=== PATIENT | female | born 1995 | race Caucasian/White ===

== ENCOUNTER 2021-01-05 14:16 | Day surgery (SDC) | payer OTHER, SELFPAY ==
--- NOTE | ~2021-01-05 | US_ITS ---
EXAMINATION: US pelvic complete DATE: 01/05/2021 15:10 INDICATION: Pelvic pain. Miscarriage. TECHNIQUE: Real-time transabdominal pelvic ultrasound was performed. COMPARISON: None. FINDINGS: The uterus measures 12.8 x 7.1 x 6.5 cm. There is no visible intrauterine gestational sac. The endome trial complex measures 13 mm in thickness. No internal vascularity. The right ovary is not visualized . The left ovary measures 2.7 x 1.7 x 1.5 cm. There is no free fluid in the pelvis. IMPRESSION: 1. Mildly thickened endometrial complex suspicious for retained products of conception. Reviewed, dictated and finalized at location A. IMPRESSION: 1. Mildly thickened endometrial complex suspicious for retained products of co nception.
[2021-01-05 14:30] VITALS: BP 111/69; PULSE 79; RESP 19; TEMP 36.8; O2SAT 100
[2021-01-05] MEDS: MORPHINE SULFATE (*CRX) 4 MG/ML INJ IV PUSH ×2 (14:38→15:58)
[2021-01-05] MEDS: LACTATED RINGERS 1,000 ML 999 ML IV CONT (14:39)
[2021-01-05 14:50] LABS: Basophils Absolute Auto 0.1 K/mm3 (0.0-0.1); Basophils Percent Auto 0.3 % (0.2-1.2); Eosinophils Absolute Auto 0.2 K/mm3 (0-0.3); Eosinophils Percent Auto 1.2 % (0-4.4); Hematocrit 33.6 % (37.0-47.0); Hemoglobin 11.3 g/dL (12.0-15.0); Immature Granulocyte Absolute 0.08 K/mm3 (0.00-0.031); Immature Granulocyte Percent A 0.5 % (0-0.5); Lymphocytes Absolute Auto 2.79 K/mm3 (0.9-3.2); Lymphocytes Percent Auto 18.8 % (18.3-44.2); Mean Corpuscular HGB Conc 33.6 g/dl (32-36); Mean Corpuscular Hemoglobin 30.3 pg (26-34); Mean Corpuscular Volume 90.1 fl (80-100); Mean Platelet Volume 9.1 fl (7.4-10.4); Monocytes Absolute Auto 0.9 K/mm3 (0.1-0.6); Monocytes Percent Auto 5.8 % (2.6-8.5); Neutrophils Absolute Auto 10.9 K/mm3 (1.3-6.7); Neutrophils Percent Auto 73.4 % (45.5-73.1); Platelet Count Result 260 k/mm3 (150-375); Red Blood Count 3.73 M/mm3 (4.2-5.4); Red Cell Distribution Width 12.5 % (11.5-14.5); White Blood Count 14.9 K/mm3 (4.5-10.0)
[2021-01-05 15:31] LABS: Alanine Aminotransferase 14 U/L (4-35); Albumin Level 3.3 g/dL (3.5-5.1); Alkaline Phosphatase 81 U/L (38-126); Anion Gap 7 mmol/L (8-16); Aspartate Amino Transferase 35 U/L (14-36); Bilirubin,Total 0.2 mg/dL (0.2-1.3); Blood Urea Nitrogen 5 mg/dL (7-17); Calcium 8.1 mg/dL (8.4-10.2); Carbon Dioxide 21 mmol/L (22-30); Chloride 102 mmol/L (98-107); Estimated CRCL calculation 168 ml/min; Estimated Glomerular Filt Rate > 60; Glucose 130 mg/dL (65-110); Potassium 3.4 mmol/L (3.4-5.0); Sodium 130 mmol/L (137-145)
--- NOTE | 2021-01-05 15:55 | ED.ABDPAIN ---
HPI - Abdominal Pain General Chief Complaint: Vaginal Bleeding <West Gomez MD - Last Filed: 01/05/21 16:32> Stated Complaint: MISCARRIAGE , BLEEDING, <West Gomez MD - Last Filed: 01/05/21 16:32> Time Seen by Provider: 01/05/21 14:28 <West Gomez MD - Last Filed: 01/05/21 16:32> Source: patient <West Gomez MD - Last Filed: 01/05/21 16:32> Mode of arrival: wheelchair <West Gomez MD - Last Filed: 01/05/21 16:32> Limitations: no limitations <West Gomez MD - Last Filed: 01/05/21 16:32> History of Present Illness HPI narrative: 4 para 3 unknown gestational age here with complaints of vaginal bleeding started this morning she states she passed a few clots started having heavy bleeding while she was driving to the hospital. Complains of lower abdominal pain. <West Gomez MD - Last Filed: 01/05/21 16:32> MD elicited complaint: abdominal pain <West Gomez MD - Last Filed: 01/05/21 16:32> Onset (ago): day(s) (1) <West Gomez MD - Last Filed: 01/05/21 16:32> Pain Consistency: constant <West Gomez MD - Last Filed: 01/05/21 16:32> Location: pelvis <West Gomez MD - Last Filed: 01/05/21 16:32> Quality: cramping <West Gomez MD - Last Filed: 01/05/21 16:32> Radiation: none <West Gomez MD - Last Filed: 01/05/21 16:32> Migration to: no migration <West Gomez MD - Last Filed: 01/05/21 16:32> Exacerbating factors: nothing <West Gomez MD - Last Filed: 01/05/21 16:32> Associated symptoms: denies other symptoms <MD Tiki Mitchell Last Filed: 01/05/21 16:32> Related Data Allergies/Adverse Reactions: Allergies Allergy/AdvReac Type Severity Reaction Status Date / Time No Known Allergies Allergy Verified 01/05/21 15:07 <West Gomez MD - Last Filed: 01/05/21 16:32> Review of Systems Review of Systems: All systems reviewed & are unremarkable except as noted in HPI and below <West Gomez MD - Last Filed: 01/05/21 16:32> Constitutional: Constitutional: Reports no additional constitutional complaints <West Gomez MD - Last Filed: 01/05/21 16:32> Eyes: Eyes: Reports no additional eye complaints <West Gomez MD - Last Filed: 01/05/21 16:32> Cardiovascular: Cardiovascular: Reports no additional cardiovascular complaints <West Gomez MD - Last Filed: 01/05/21 16:32> Respiratory: Respiratory: Reports no additional respiratory complaints <West Gomez MD - Last Filed: 01/05/21 16:32> Gastrointestinal: Gastrointestinal: Reports abdominal pain <West Gomez MD - Last Filed: 01/05/21 16:32> Genitourinary: Genitourinary: Reports abnormal vaginal bleeding <West Gomez MD - Last Filed: 01/05/21 16:32> Musculoskeletal: Musculoskeletal: Reports no additional musculoskeletal complaints <West Gomez MD - Last Filed: 01/05/21 16:32> Neurologic: Reports system reviewed and no additional complaints, except as documented <West Gomez MD - Last Filed: 01/05/21 16:32> PMFSH Social History Social History: Social History Smoking packs per day: 0.5 Smoking cigarettes per day: 10.0 Years smoked: 10 Smoking pack-years: 5.00 Smoking status: Current every day smoker Tobacco type: cigarettes Second hand tobacco smoke exposure: Yes Substance use: never Gender identity (if verbalized by the patient): Female Spiritual care concerns: No <West Gomez MD - Last Filed: 01/05/21 16:32> Exam Narrative: GENERAL: Well-appearing, well-nourished, and in moderate lower abd pain. HEAD: Normocephalic, atraumatic. EYES: PERRLA and EOMI. NECK: Supple. CHEST: Clear to auscultation. No respiratory distress. HEART: Regular rate and rhythm. No murmur heard. Normal peripheral pulses. ABDOMEN: Soft, tender in the lower abdomen . EXTREMITIES: Normal range of motion.
--- NOTE | 2021-01-05 16:50 | PC.NURSE ---
[facility] called @ [phone] and spoke with Ronda Gaitan [facility] contacted spoke with Cl, states baby is too young for donation.
--- NOTE | 2021-01-05 17:03 | WPDANESEPP ---
Anes - Eval Pre Procedure Procedure: Operation Date: 01/05/21 17:30 Proposed Procedures p D&C Suction and Charanjit Morataya MD Date/Time: 01/05/21 17:03 Pre Op Diagnosis: MISCARRIAGE , BLEEDING, Patient Data Age: 25 Gender: F Height: 1.57 m Weight: 79 kg Last Vital Signs Temp 36.8 C 01/05/21 14:30 Pulse 79 01/05/21 14:30 Resp 19 01/05/21 14:30 BP 111/69 01/05/21 14:30 Pulse Ox 100 01/05/21 14:30 Allergies Allergy/AdvReac Type Severity Reaction Status Date / Time No Known Allergies Allergy Verified 01/05/21 15:07 Home Medications Medication Instructions Recorded Confirmed Type 1 tablet PO DAILY 06/04/19 06/04/19 History acetaminophen [Mapap 650 mg PO Q6H PRN #30 tablet 06/06/19 Rx (acetaminophen)] docusate sodium 100 mg PO BID #60 cap 06/06/19 Rx hydrocodone-acetaminophen 1 tab PO Q3H PRN #28 tablet 06/06/19 Rx ibuprofen 600 mg PO Q6H PRN #30 tablet 06/06/19 Rx lanolin [[id number]] 1 applic TOPICAL PRN PRN #1 g 06/06/19 Rx Laboratory Tests 01/05/21 01/05/21 14:43 14:43 WBC 14.9 K/mm3 H K/mm3 (4.5-10.0) RBC 3.73 M/mm3 L M/mm3 (4.2-5.4) Hgb 11.3 g/dL L g/dL (12.0-15.0) Hct 33.6 % L % (37.0-47.0) MCV 90.1 fl fl (80-100) MCH 30.3 pg pg (26-34) MCHC 33.6 g/dl g/dl (32-36) RDW 12.5 % % (11.5-14.5) Plt Count 260 k/mm3 k/mm3 (150-375) MPV 9.1 fl fl (7.4-10.4) Immature Gran % (Auto) 0.5 % % (0-0.5) Neut % (Auto) 73.4 % H % (45.5-73.1) Lymph % (Auto) 18.8 % % (18.3-44.2) [place] % (Auto) 5.8 % % (2.6-8.5) Eos % (Auto) 1.2 % % (0-4.4) Baso % (Auto) 0.3 % % (0.2-1.2) Lymph # (Auto) 2.79 K/mm3 K/mm3 (0.9-3.2) [place] # (Auto) 0.9 K/mm3 H K/mm3 (0.1-0.6) Eos # (Auto) 0.2 K/mm3 K/mm3 (0-0.3) Baso # (Auto) 0.1 K/mm3 K/mm3 (0.0-0.1) Abs Immat Gran (auto) 0.08 K/mm3 H K/mm3 (0.00-0.031) Absolute Neuts (auto) 10.9 K/mm3 H K/mm3 (1.3-6.7) Absolute Nucleated RBC 0.0 K/mm3 K/mm3 (0.0-0.012) Nucleated RBC % 0.0 % % (0.0-0.2) Sodium 130 mmol/L L mmol/L (137-145) Potassium 3.4 mmol/L mmol/L (3.4-5.0) Chloride 102 mmol/L mmol/L (98-107) Carbon Dioxide 21 mmol/L L mmol/L (22-30) Anion Gap 7 mmol/L L mmol/L (8-16) BUN 5 mg/dL L mg/dL (7-17) Creatinine 0.40 mg/dL L mg/dL (0.7-1.0) Estim Creat Clear Calc 168 ml/min ml/min Estimated GFR > 60 (59 - ) Glucose 130 mg/dL H mg/dL (65-110) Calcium 8.1 mg/dL L mg/dL (8.4-10.2) Total Bilirubin 0.2 mg/dL mg/dL (0.2-1.3) AST 35 U/L U/L (14-36) ALT 14 U/L U/L (4-35) Alkaline Phosphatase 81 U/L U/L (38-126) Total Protein 6.0 g/dL L g/dL (6.3-8.2) Albumin 3.3 g/dL L g/dL (3.5-5.1) Beta HCG, Quant 54239.00 mIU/ML mIU/ML Patient hx anesthesia problems: none Family hx anesthesia problems: none PMFSH Social History Social History Smoking packs per day: 0.5 Smoking cigarettes per day: 10.0 Years smoked: 10 Smoking pack-years: 5.00 Smoking status: Current every day smoker Tobacco type: cigarettes Second hand tobacco smoke exposure: Yes Substance use: never Gender identity (if verbalized by the patient): Female Spiritual care concerns: No Exam Day of Procedure 01/05/21 17:03
--- NOTE | 2021-01-05 17:29 | PC.NURSE ---
Products of conception taken to Lab by instrument and electrical technician. Share paperwork sent to OB 1st floor per Thanh.
[2021-01-05] MEDS: LACTATED RINGERS 1,000 ML 30 ML IV CONT (17:30)
--- NOTE | 2021-01-05 17:32 | WPDANESEPPF ---
Anes - Initial Pre Proc Eval Procedure: Operation Date: 01/05/21 17:30 Proposed Procedures p D&C Suction and Sharp - Fredis Morataya MD Date/Time: 01/05/21 17:32 Surgeon: Fredis Morataya MD Pre Op Diagnosis: MISCARRIAGE , BLEEDING, Patient Data Age: 25 Gender: F Height: 1.57 m Weight: 79 kg Last Vital Signs Temp 36.8 C 01/05/21 14:30 Pulse 79 01/05/21 14:30 Resp 19 01/05/21 14:30 BP 111/69 01/05/21 14:30 Pulse Ox 100 01/05/21 14:30 Allergies Allergy/AdvReac Type Severity Reaction Status Date / Time No Known Allergies Allergy Verified 01/05/21 15:07 Home Medications Medication Instructions Recorded Confirmed Type 1 tablet PO DAILY 06/04/19 06/04/19 History acetaminophen [Mapap 650 mg PO Q6H PRN #30 tablet 06/06/19 Rx (acetaminophen)] docusate sodium 100 mg PO BID #60 cap 06/06/19 Rx hydrocodone-acetaminophen 1 tab PO Q3H PRN #28 tablet 06/06/19 Rx ibuprofen 600 mg PO Q6H PRN #30 tablet 06/06/19 Rx lanolin [[id number]] 1 applic TOPICAL PRN PRN #1 g 06/06/19 Rx Laboratory Tests 01/05/21 01/05/21 14:43 14:43 WBC 14.9 K/mm3 H K/mm3 (4.5-10.0) RBC 3.73 M/mm3 L M/mm3 (4.2-5.4) Hgb 11.3 g/dL L g/dL (12.0-15.0) Hct 33.6 % L % (37.0-47.0) MCV 90.1 fl fl (80-100) MCH 30.3 pg pg (26-34) MCHC 33.6 g/dl g/dl (32-36) RDW 12.5 % % (11.5-14.5) Plt Count 260 k/mm3 k/mm3 (150-375) MPV 9.1 fl fl (7.4-10.4) Immature Gran % (Auto) 0.5 % % (0-0.5) Neut % (Auto) 73.4 % H % (45.5-73.1) Lymph % (Auto) 18.8 % % (18.3-44.2) [place] % (Auto) 5.8 % % (2.6-8.5) Eos % (Auto) 1.2 % % (0-4.4) Baso % (Auto) 0.3 % % (0.2-1.2) Lymph # (Auto) 2.79 K/mm3 K/mm3 (0.9-3.2) [place] # (Auto) 0.9 K/mm3 H K/mm3 (0.1-0.6) Eos # (Auto) 0.2 K/mm3 K/mm3 (0-0.3) Baso # (Auto) 0.1 K/mm3 K/mm3 (0.0-0.1) Abs Immat Gran (auto) 0.08 K/mm3 H K/mm3 (0.00-0.031) Absolute Neuts (auto) 10.9 K/mm3 H K/mm3 (1.3-6.7) Absolute Nucleated RBC 0.0 K/mm3 K/mm3 (0.0-0.012) Nucleated RBC % 0.0 % % (0.0-0.2) Sodium 130 mmol/L L mmol/L (137-145) Potassium 3.4 mmol/L mmol/L (3.4-5.0) Chloride 102 mmol/L mmol/L (98-107) Carbon Dioxide 21 mmol/L L mmol/L (22-30) Anion Gap 7 mmol/L L mmol/L (8-16) BUN 5 mg/dL L mg/dL (7-17) Creatinine 0.40 mg/dL L mg/dL (0.7-1.0) Estim Creat Clear Calc 168 ml/min ml/min Estimated GFR > 60 (59 - ) Glucose 130 mg/dL H mg/dL (65-110) Calcium 8.1 mg/dL L mg/dL (8.4-10.2) Total Bilirubin 0.2 mg/dL mg/dL (0.2-1.3) AST 35 U/L U/L (14-36) ALT 14 U/L U/L (4-35) Alkaline Phosphatase 81 U/L U/L (38-126) Total Protein 6.0 g/dL L g/dL (6.3-8.2) Albumin 3.3 g/dL L g/dL (3.5-5.1) Beta HCG, Quant 39043.00 mIU/ML mIU/ML Patient hx anesthesia problems: none Family hx anesthesia problems: none PMFSH Social History Social History Smoking packs per day: 0.5 Smoking cigarettes per day: 10.0 Years smoked: 10 Smoking pack-years: 5.00 Smoking status: Current every day smoker Tobacco type: cigarettes Second hand tobacco smoke exposure: Yes Substance use: never Gender identity (if verbalized by the patient): Female Spiritual care concerns: No Anes - Eval Final PreProcedure Day of Procedure 01/05/21 17:32 Patient weight: obese Heart: regular rate and rhythm Lungs: clear to auscultation Airway: Mallampati scale class II Neurological: alert and oriented Last oral intake: >/= 8 hours ASA classification: III Emergent: no Anesthetic plan: proceed Anesthesia type and monitoring: general GIVS and standard monitoring Informed Consent: The patient's anesthetic plan and its
[2021-01-05 17:38] VITALS: BP 112/64; PULSE 77; RESP 16; TEMP 36.4; O2SAT 100
--- NOTE | 2021-01-05 17:52 | PM.IMHP ---
H&P: HPI History of Present Illness Date/Time: 01/05/21 17:52 Chief Complaint: incompmlete Narrative: 25 yo who presents with vaginal bleeding and abdominal pain. pt states she found out she was 3 days ago. Pt states that this morning she started having heavy vaginal bleeding. She states she had painful abdominal cramping. She has continued to have heavy vaginal bleeding which presented her to the ED. Pt was hemodynamically stable upon evaluation. Pelvic US showed a thickened endometrium suggestive of retained products of conception. Beta HCG noted to be 50,000. Review of Systems Cardiovascular: Cardiovascular: Denies chest pain, Denies leg edema, Denies palpitations, Denies dyspnea and Denies dyspnea on exertion Respiratory: Respiratory: Denies cough, Denies dyspnea and Denies dyspnea on exertion Gastrointestinal: Gastrointestinal: Denies abdominal pain, Denies constipation, Denies diarrhea, Denies nausea and Denies vomiting Genitourinary: Genitourinary: Denies hematuria, Denies urinary frequency, Denies dysuria, Denies pelvic pain, Denies urinary incontinence and Denies vaginal discharge Neurologic: Reports system reviewed and no additional complaints, except as documented Psychiatric: Psychiatric: Reports no additional psychiatric complaints Endocrine: Endocrine: Denies palpitations PMFSH Social History Social History Smoking packs per day: 0.5 Smoking cigarettes per day: 10.0 Years smoked: 10 Smoking pack-years: 5.00 Smoking status: Current every day smoker Tobacco type: cigarettes Second hand tobacco smoke exposure: Yes Substance use: never Gender identity (if verbalized by the patient): Female Spiritual care concerns: No Meds Home Medications and Allergies Home Medications Medication Instructions Recorded Confirmed Type 1 tablet PO DAILY 06/04/19 06/04/19 History acetaminophen [Mapap 650 mg PO Q6H PRN #30 tablet 06/06/19 Rx (acetaminophen)] docusate sodium 100 mg PO BID #60 cap 06/06/19 Rx hydrocodone-acetaminophen 1 tab PO Q3H PRN #28 tablet 06/06/19 Rx ibuprofen 600 mg PO Q6H PRN #30 tablet 06/06/19 Rx lanolin [[id number]] 1 applic TOPICAL PRN PRN #1 g 06/06/19 Rx Allergies Allergy/AdvReac Type Severity Reaction Status Date / Time No Known Allergies Allergy Verified 01/05/21 15:07 Vital Signs Vital Signs - 24 hr 01/05/21 14:30 01/05/21 17:38 Temperature 36.8 C 36.4 C Pulse Rate 79 77 Respiratory Rate 19 16 Blood Pressure 111/69 112/64 Pulse Oximetry 100 100 Exam Const: General: no acute distress Eyes: EOM: EOMs intact bilaterally Neck: Neck: supple Thyroid: thyroid normal Chest: Breast/axilla inspection: normal inspection of the breasts Breast/axilla palpation: normal palpation of the breasts, normal palpation of the axillae and no axillary lymphadenopathy Resp: Effort & Inspection: normal respiratory effort Auscultation: clear to auscultation bilaterally Cardio: Rate: regular rate Rhythm: regular rhythm GI: Inspection: non-distended GI Palp: Yes Soft to palpation, No Tenderness to palpation present (GI) and No Guarding due to palpation present (GI) Auscultation: normal bowel sounds : General: No bladder normal to palpation External Female Exam: normal external appearance Speculum Exam - Vagina: normal vaginal discharge and No vaginal bleeding Speculum Exam - Cervix: nontender Bimanual exam- vagina & uterus: No bladder normal to palpation and No Cervical tenderness present OB/external & speculum: No vaginal bleeding Skin: General skin exam: normal color and no rashes or lesions noted Neuro: Cognition (Neuro): normal cognition Speech: normal speech Extrem: General: normal to inspection and no edema Psych: Mental Status: mental status grossly normal Affect: normal affect H&P: Results Labs Labs: Short CBC 01/05/21 Range/Units 14:43
--- NOTE | 2021-01-05 17:57 | WPDHPUPDATE1 ---
History and Physical Update Update Date/Time: 01/05/21 17:57 History and Physical has been reviewed, including an updated exam of the patient. There are NO changes in the patient's condition. Risks, benefits, and alternatives have been discussed and questions answered. Patient agrees to proceed with procedure.
--- NOTE | 2021-01-05 18:21 | P.OP_ITS ---
Procedure Note - Detailed Date of Procedure 01/05/21 Pre-op Diagnosis MISCARRIAGE , BLEEDING, Post-op Diagnosis same Procedure Performed Suction Dilation & curettage Surgeon Harsh Nayak MD Anesthesia general Indications incomplete missed on pelvic US Findings cervix dilated to 3 cm, products of conceptions visualized at the cervix, intrauterine products of conception Description of Procedure The patient was taken to the operating room after an incomplete had been noted on on transvaginal ultrasound. The risks, benefits and alternatives of the procedure were reviewed with the patient and informed consent was obtained. The patient was taken to the OR and anesthesia was noted to be adequate. The patient was placed in the dorso- lithotomy position. Pelvic exam was performed with findings noted above. The patient was prepped and draped in the usual sterile fashion. Sterile speculum was placed in the vagina and the cervix was grasped with a tenaculum. The 8 mm suction curette was gently advanced to the fundus, suction was activated, and the tip was rotated while being withdrawn to clear the uterus of products. This suction process was repeated 6 additional times due to the quantity of material in the uterus. The sharp curette was introduced and advanced to the fundus to remove any remaining products. The suction curette was reintroduced one final time to ensure all products had been removed. The tenaculum was removed. Good hemostasis was noted. Instrument, sponge, and sharp counts were correct. Patient tolerated the procedure well and was taken to the recovery room in stable condition. Estimated Blood Loss 150 Drains No Packing No Pathology yes (products of conception ) Complications No immediate complications Condition stable Disposition PACU
[2021-01-05 18:25] VITALS: BP 112/59; PULSE 83; RESP 12; O2SAT 99
[2021-01-05 18:50] VITALS: BP 105/56; PULSE 72; O2SAT 100
[2021-01-05 19:15] VITALS: BP 99/58; PULSE 75
== END 2021-01-05 19:38 | disposition home or self-care (01) ==
LOC: ANHED 16:32 → ANHSURGERY 17:00
PROVIDERS: Student in an Organized Health Care Education/Training Program; Emergency Provider Family Medicine; PCP Family Medicine; Visit Provider Obstetrics & Gynecology
PROC: (CPT 59820; principal; 2021-01-05 17:30)
DX: O02.1 Missed abortion (principal); Q79.2 Exomphalos; F17.210 Nicotine dependence, cigarettes, uncomplicated
CPT/HCPCS: 59820; 36415; 76856; 80053; 84702; 85025; 88305; 96361; 96374; 96375; 99285; A9270; J2250; J2270; J2405; J2590; J2704; J3010; J7120

== ENCOUNTER 2021-11-26 18:42 | Emergency (ER) | payer OTHER, SELFPAY ==
--- NOTE | 2021-11-26 18:51 | ED.SKABFB ---
HPI - Skin/Abscess/Foreign Bdy General Chief complaint: Skin/Abscess/Foreign Body Stated complaint: Rash Time Seen by Provider: 11/26/21 18:52 Source: patient and RN notes reviewed Mode of arrival: ambulatory Limitations: no limitations History of Present Illness HPI narrative: 26-year-old female presents to the [facility] with a rash to her torso and arms for the last 7 to 10 days. Patient states that she was walking outside when shortly thereafter a rash appears. Has tried using fexofenadine with no relief. Patient denies any fevers. Describes the rash as very itchy. Started on her right shoulder approximately a week to 10 days ago. No cellulitic changes. Related Data Allergies Allergy/AdvReac Type Severity Reaction Status Date / Time No Known Allergies Allergy Verified 11/26/21 18:58 Review of Systems Review of Systems: All systems reviewed & are unremarkable except as noted in HPI and below Constitutional: Constitutional: Reports no additional constitutional complaints, Denies chills and Denies fever(s) Eyes: Eyes: Reports no additional eye complaints ENT: Reports system reviewed and no additional complaints, except as documented Cardiovascular: Cardiovascular: Reports no additional cardiovascular complaints Respiratory: Respiratory: Reports no additional respiratory complaints Gastrointestinal: Gastrointestinal: Reports no additional gastrointestinal complaints Musculoskeletal: Musculoskeletal: Reports no additional musculoskeletal complaints Integumentary/Breasts: Skin/Breast: Reports as per HPI, Reports pruritus and Reports rash Neurologic: Reports system reviewed and no additional complaints, except as documented Psychiatric: Psychiatric: Reports no additional psychiatric complaints Allergic/Immunologic: Allergic/Immunologic: Reports no additional allergic/immunologic complaints [facility] Past Medical History Medical History (Updated 11/28/21 @ 09:48 by Malia Szymanski APRN) Patient denies medical problems Surgical History Surgical History (Updated 11/28/21 @ 09:48 by Malia Szymanski APRN) No history of previous surgery Social History Social History Smoking packs per day: 0.5 Smoking cigarettes per day: 10.0 Years smoked: 10 Smoking pack-years: 5.00 Smoking status: Current every day smoker Tobacco type: cigarettes Second hand tobacco smoke exposure: Yes Substance use: never Gender identity (if verbalized by the patient): Female Spiritual care concerns: No Comments At the time of my signature, I reviewed and agree with the nursing past medical, surgical, social, and family history. There is no relevant family history pertinent to the patient complaint. Exam Const: General: healthy appearing, no acute distress and alert Nutritional Appearance: well nourished Orientation/consciousness: patient oriented x3 Limitations: no limitations HENMT: Head: normal to inspection Ears: external ears normal, TM's normal bilaterally and EAC's normal General nose exam: Normal external nose present Mouth: Yes Normal oral and palatal mucosa present and Yes lip normal Throat: posterior oropharynx normal and uvula midline Eyes: General: appearance normal, both eyes and all related structures Pupils: Equal, round and reactive pupils present Neck: Neck: normal visual inspection, no lymphadenopathy and no meningeal signs Chest: Chest palpation & inspection: normal inspection of the chest Resp: Effort & Inspection: normal respiratory effort and no use of accessory muscles Auscultation: clear to auscultation bilaterally, no crackles, no rales, no rhonchi and no wheezes Cardio: Rate: regular rate Rhythm: regular rhythm Back/Spine/Pelvis: Cervical Spine: normal cervical lordosis Thoracic/Lumbar Spine: thoracic and lumbar spine normal to inspection Skin: General skin exam: normal color Wounds: no wounds Other: Red raised areas wi
[2021-11-26 18:52] VITALS: BP 136/98; PULSE 115; RESP 16; TEMP 36.7; O2SAT 100
== END 2021-11-26 19:05 | disposition home or self-care (01) ==
PROVIDERS: Emergency Provider Nurse Practitioner
DX: R21 Rash and other nonspecific skin eruption (principal); F17.210 Nicotine dependence, cigarettes, uncomplicated
CPT/HCPCS: 99213; G0463

== ENCOUNTER 2021-12-04 01:08 | Emergency (ER) | payer OTHER, SELFPAY ==
[2021-12-04 01:17] VITALS: BP 143/88; PULSE 110; RESP 18; TEMP 36.6; O2SAT 100
[2021-12-04 01:56] VITALS: PULSE 82; RESP 16; O2SAT 100
--- NOTE | 2021-12-04 02:31 | ED.GENADULT ---
HPI - General Adult General Chief complaint: Allergic Reaction Stated complaint: rash/hives Time Seen by Provider: 12/04/21 01:59 History of Present Illness HPI narrative: 26-year-old female presenting to the emergency department for evaluation of persistent hives. Patient states approximately 3 weeks ago she had onset of of an urticarial rash which she attributes to taking a walk in the [place]. Patient did have follow-up with her primary care physician and was started on antihistamines and on a short course of prednisone. Patient states that 2 days after stopping the prednisone she had recurrence of the urticarial rash. Patient denies any chest pain or shortness of breath. Patient denies any difficulty breathing or swallowing. Patient denies any swelling of her tongue lips or airway. Patient does have an urticarial rash on her chest torso abdomen arms and back. Patient does not know what the allergic reaction may be due to. Patient denies any bedbugs in the house. Patient denies any new soaps detergents or medications. Related Data Allergies Allergy/AdvReac Type Severity Reaction Status Date / Time No Known Allergies Allergy Verified 12/04/21 01:55 Review of Systems Review of Systems: CONSTITUTIONAL: Denies fever, chills, or sweats. EYES: Denies visual changes, redness, or discharge. ENT: Denies rhinorrhea, congestion, sore throat, or otalgia. CARDIOVASCULAR: Denies chest pain, palpitations, or edema. RESPIRATORY: Denies cough or dyspnea. GASTROINTESTINAL: Denies abdominal pain, nausea, vomiting, or diarrhea. GENITOURINARY: Denies dysuria or hematuria. SKIN: See HPI MUSCULOSKELETAL: Denies back pain, joint pain, or myalgia. NEUROLOGIC: Denies headache, numbness, or weakness. [facility] Past Medical History Medical History (Updated 12/04/21 @ 02:35 by Aaron Cotto MD) Patient denies medical problems Surgical History Surgical History (Updated 11/28/21 @ 09:48 by Malia Szymanski APRN) No history of previous surgery Social History Social History Smoking packs per day: 0.5 Smoking cigarettes per day: 10.0 Years smoked: 10 Smoking pack-years: 5.00 Smoking status: Current every day smoker Tobacco type: cigarettes Second hand tobacco smoke exposure: Yes Substance use: never Gender identity (if verbalized by the patient): Female Spiritual care concerns: No Exam Narrative: APPEARANCE: Well appearing, no pain, no distress, well-nourished. HEAD: normocephalic, atraumatic. EYES: PERRLA/EOMI, conjunctivae clear. NOSE: Normal no drainage THROAT: Pharynx clear, no exudate. No swelling of mouth, tongue, lips, posterior pharynx. NECK: Supple. No adenopathy, no masses. RESPIRATORY: Airway patent, respirations nonlabored. Clear to auscultation bilaterally, no rales, rhonchi, wheezing. CARDIOVASCULAR: Regular rate and rhythm without murmurs rubs or gallops. ABDOMINAL: Soft, nontender, nondistended, normal bowel sounds MUSCULOSKELETAL: Moves all extremities. Strength/ROM intact, No edema, No calf tenderness. NEURO: Alert. Cranial nerves II through XII intact. Grossly intact SKIN: Urticarial rash to torso arms and back PSYCHIATRIC: Normal affect/mood. Course Course Emergency Course: Patient was restarted on steroid. Patient will be treated with a Medrol Dosepak with a taper. Patient was also encouraged to have close follow-up with her primary care physician. Vital Signs Vital signs: Vital Signs Temperature 97.9 F 12/04/21 01:17 Pulse Rate 110 H 12/04/21 01:17 Respiratory Rate 18 12/04/21 01:17 Blood Pressure 143/88 H 12/04/21 01:17 Pulse Oximetry 100 12/04/21 01:17 Oxygen Delivery Room Air 12/04/21 01:17 Temperature 97.9 F 12/04/21 01:17 Pulse Rate 99 12/04/21 02:43 Respiratory Rate 14 12/04/21 02:43 Blood Pressure 120/78 12/04/21 02:43 Pulse Oximetry 100 12/04/21 02:43 Oxygen Delivery Room Air
[2021-12-04 02:43] VITALS: BP 120/78; PULSE 99; RESP 14; O2SAT 100
== END 2021-12-04 02:49 | disposition home or self-care (01) ==
PROVIDERS: Emergency Provider Emergency Medicine
DX: L50.0 Allergic urticaria (principal); F17.210 Nicotine dependence, cigarettes, uncomplicated
CPT/HCPCS: 99283

== ENCOUNTER → 2023-01-25 13:21 | Outpatient (CLI) | payer OTHER, SELFPAY ==
--- NOTE | ~2023-01-25 | XR_ITS ---
EXAMINATION: XR chest 2V 01/25/2023 13:42 INDICATION: Past smoker PROCEDURE: 2 view chest COMPARISON: No prior studies for comparison. FINDINGS: The lungs are clear. The cardiomediastinal silhouette is within normal limits. There are no pleural effusions. There is no pneumothorax suspected. IMPRESSION: 1: NO ACUTE CARDIOPULMONARY DISEASE. Reviewed, dictated and finalized at location L.
== END ==
PROVIDERS: PCP Emergency Medicine; Visit Provider Emergency Medicine
DX: Z87.891 Personal history of nicotine dependence (principal)
CPT/HCPCS: 71046

== ENCOUNTER 2023-06-21 06:29 | Emergency (ER) | payer OTHER, SELFPAY ==
[2023-06-21 06:31] VITALS: BP 164/107; PULSE 82; RESP 16; TEMP 36.6; O2SAT 100
[2023-06-21] MEDS: PENICILLIN G BENZATHINE 2,400,000 UNITS/4 ML SYRINGE 2400000 UNITS IM (07:15)
--- NOTE | 2023-06-21 07:24 | ED.GENADULT ---
HPI - General Adult General Chief complaint: Recheck/Abnormal Lab/Rx Stated complaint: Doctor sent to ED for testing + for syphillis Time Seen by Provider: 06/21/23 06:53 History of Present Illness HPI narrative: 27-year-old female presenting to the emergency department for evaluation after getting a positive syphilis test from her primary care physician. Patient states that she had a questionable rash in 2021. At the time the patient was treated with multiple rounds of antibiotics that did not help. Patient states the rash ultimately resolved. patient just found out a few days ago but the symptoms resolved. Patient was told by her primary care physician to present to [facility] emergency department. Patient states she waited in the emergency department for greater than 20 hours then came to our emergency department. Related Data Allergies Allergy/AdvReac Type Severity Reaction Status Date / Time No Known Allergies Allergy Verified 12/04/21 01:55 Review of Systems Review of Systems: All systems reviewed & are unremarkable except as noted in HPI and below PMFSH Past Medical History Medical History (Updated 06/21/23 @ 07:37 by Aaron Cotto MD) Patient denies medical problems Surgical History Surgical History (Updated 11/28/21 @ 09:48 by Malia Szymanski APRN) No history of previous surgery Social History Social History Smoking packs per day: 0.5 Smoking cigarettes per day: 10.0 Years smoked: 10 Smoking pack-years: 5.00 Smoking status: Current every day smoker Tobacco type: cigarettes Second hand tobacco smoke exposure: Yes Substance use: never Gender identity (if verbalized by the patient): Female Spiritual care concerns: No Exam Narrative: APPEARANCE: Well appearing, no pain, no distress, well-nourished. HEAD: normocephalic, atraumatic. EYES: PERRLA/EOMI, conjunctivae clear. NOSE: Normal no drainage EARS:TMS clear with good light reflex. THROAT: Pharynx clear, no exudate. NECK: Supple. No adenopathy, no masses. RESPIRATORY: Airway patent, respirations nonlabored. Clear to auscultation bilaterally, no rales, rhonchi, wheezing. CARDIOVASCULAR: Regular rate and rhythm without murmurs rubs or gallops. ABDOMINAL: Soft, nontender, nondistended, normal bowel sounds MUSCULOSKELETAL: Moves all extremities. Strength/ROM intact, No edema, No calf tenderness. NEURO: Alert. Cranial nerves II through XII intact. Grossly intact, negative Romberg, normal for her backward tandem gait, normal strength reflexes SKIN: Warm, dry. Normal Color Course Course Emergency Course: 27-year-old female presenting to the emergency department for evaluation of syphilis/ late syphilis. Patient's exam is not concerning for neurosyphilis. Patient has no underlying allergies and patient was treated with 2.4 million units of penicillin G. I discussed the case with Elisabeth Houston and she will contact [facility] and ensure follow-up for the patient. The patient was also encouraged to contact her primary care physician and patient will be provided a script for her additional 2 shots 2.4 million units pen G. Vital Signs Vital signs: Vital Signs Temperature 97.9 F 06/21/23 06:31 Pulse Rate 82 06/21/23 06:31 Respiratory Rate 16 06/21/23 06:31 Blood Pressure 164/107 H 06/21/23 06:31 Pulse Oximetry 100 06/21/23 06:31 Oxygen Delivery Room Air 06/21/23 06:31 Temperature 97.9 F 06/21/23 06:31 Pulse Rate 98 06/21/23 07:47 Respiratory Rate 15 06/21/23 07:47 Blood Pressure 146/84 H 06/21/23 07:47 Pulse Oximetry 100 06/21/23 07:47 Oxygen Delivery Room Air 06/21/23 06:31 Medical Decision Making Vital Signs Vital Signs: Vital Signs Temperature 97.9 F 06/21/23 06:31 Pulse Rate 82 06/21/23 06:31 Respiratory Rate 16 06/21/23 06:31 Blood Pressure 164/107 H 06/21/23 06:31 Pulse Oximetry 100 06/21/23 06:31
[2023-06-21 07:47] VITALS: BP 146/84; PULSE 98; RESP 15; O2SAT 100
== END 2023-06-21 07:48 | disposition home or self-care (01) ==
PROVIDERS: Emergency Provider Emergency Medicine; PCP Emergency Medicine
DX: A53.9 Syphilis, unspecified (principal); F17.210 Nicotine dependence, cigarettes, uncomplicated
CPT/HCPCS: 96372; 99283; J0561

== ENCOUNTER 2023-06-27 17:03 | Emergency (ER) | payer OTHER, SELFPAY ==
[2023-06-27 17:05] VITALS: BP 157/98; PULSE 112; RESP 16; TEMP 36.6; O2SAT 99
[2023-06-27] MEDS: PENICILLIN G BENZATHINE 2,400,000 UNITS/4 ML SYRINGE 2400000 UNITS IM (18:02)
--- NOTE | 2023-06-27 18:09 | ED.RECABL ---
HPI - Recheck/Abnormal Lab/Rx General Chief Complaint: Recheck/Abnormal Lab/Rx Stated Complaint: needs 3rd shot for syphilis Time Seen by Provider: 06/27/23 17:34 Source: patient Mode of arrival: ambulatory Limitations: no limitations History of Present Illness HPI narrative: This is a 27-year-old female that presents to the emergency department for her 2nd penicillin injection. Diagnosed with syphilis last week. She was prescribed the 2nd and 3rd injections, but was unable to get them filled at the pharmacy. She presents today for her next injection. Related Data Allergies Allergy/AdvReac Type Severity Reaction Status Date / Time No Known Allergies Allergy Verified 12/04/21 01:55 Review of Systems Review of Systems: CONSTITUTIONAL: Denies fever SKIN: Denies rash All systems reviewed & are unremarkable except as noted in HPI and below PMFSH Past Medical History Medical History (Updated 06/27/23 @ 18:16 by Ann Gil PA-C) Patient denies medical problems Surgical History Surgical History (Updated 11/28/21 @ 09:48 by Malia Szymanski APRN) No history of previous surgery Social History Social History Smoking packs per day: 0.5 Smoking cigarettes per day: 10.0 Years smoked: 10 Smoking pack-years: 5.00 Smoking status: Current every day smoker Tobacco type: cigarettes Second hand tobacco smoke exposure: Yes Substance use: never Gender identity (if verbalized by the patient): Female Spiritual care concerns: No Exam Narrative: GENERAL: Well-appearing, well-nourished, and in no acute distress. HEAD: Normocephalic, atraumatic. EYES: EOMI. EXTREMITIES: Normal range of motion. No edema. SKIN: Warm, dry, no rash. NEURO: No focal deficits. Alert and oriented x3. PSYCH: Normal mood and affect Course Course Emergency Course: Patient agrees with plan of care Consultations Consultation #1: Spoke with Elisabeth infection control nurse. Patient will need to get [facility] for her third injection Date: 06/27/23 Vital Signs Vital signs: Vital Signs Temperature 98 F 06/27/23 17:05 Pulse Rate 112 H 06/27/23 17:05 Respiratory Rate 16 06/27/23 17:05 Blood Pressure 157/98 H 06/27/23 17:05 Pulse Oximetry 99 06/27/23 17:05 Oxygen Delivery Room Air 06/27/23 17:05 Temperature 98 F 06/27/23 17:05 Pulse Rate 112 H 06/27/23 17:05 Respiratory Rate 16 06/27/23 17:05 Blood Pressure 157/98 H 06/27/23 17:05 Pulse Oximetry 99 06/27/23 17:05 Oxygen Delivery Room Air 06/27/23 17:05 MDM - Recheck/Abnormal Lab/Rx MDM Narrative Medical decision making narrative: Presents to the emergency department for her 2nd penicillin injection. Diagnosed with syphilis last week. She was prescribed the 2nd and 3rd injections, but was unable to get them filled at the pharmacy. She presents today for her next injection. This was given. She was given warnings to return to the ER Critical Care Time Critical Care Time Critical Care Time: No Discharge Plan Discharge Clinical Impression: Syphilis Patient Disposition: Home, Self-Care Condition: Stable Instructions: Antibiotic Form, Sexually Transmitted Diseases (ED) Additional Instructions: You need to get ahold of the health department for further management/your third shot Prescriptions: No Action prednisone 20 mg tablet 20 mg PO DAILY Qty: 5 0RF permethrin 5 % cream 1 applic topical ONCE Qty: 60 0RF Rx Instructions: leave on for 8 to14 hrs before washing off methylprednisolone [Medrol (Jaime)] 4 mg tablets,dose pack See Rx Instructions .ROUTE .COMPLEX Qty: 21 0RF Rx Instructions: orally per package directions penicillin G benzathine 2,400,000 unit/4 mL syringe 2.4 mmu IM WEEKLY 14 Days Qty: 8 0RF Rx Instructions: You received your 1st treatment on 06/21/2023. Your 2nd treatme
[2023-06-27 18:43] VITALS: BP 144/82; PULSE 100; RESP 14; O2SAT 100
== END 2023-06-27 18:44 | disposition home or self-care (01) ==
PROVIDERS: Emergency Provider Physician Assistant; PCP Emergency Medicine
DX: A53.9 Syphilis, unspecified (principal); F17.210 Nicotine dependence, cigarettes, uncomplicated
CPT/HCPCS: 96372; 99283; J0561

== ENCOUNTER 2023-07-14 18:37 | Emergency (ER) | payer OTHER, SELFPAY ==
--- NOTE | ~2023-07-14 | XR_ITS ---
EXAMINATION: XR chest 2V DATE: 07/14/2023 19:12 INDICATION: Cough TECHNIQUE: PA and lateral views of the chest are obtained. COMPARISON: 01/25/2023 FINDINGS: There are airspace opacities of the right lower lobe. No pleural effusion or pneumothorax. The cardiomediastinal silhouette is normal. There is mild thoracic spondylosis. IMPRESSION: 1. Right lower lobe airspace opacities, consistent with atelectasis versus pneumonia. Reviewed, dictated and finalized at location F. [employer] IMPRESSION: 1. Right lower lobe airspace opacities, consistent with atelectasis versus pneu monia.
[2023-07-14 18:47] VITALS: BP 129/82; PULSE 96; RESP 18; TEMP 36.6; O2SAT 99
--- NOTE | 2023-07-14 19:39 | ED.URI ---
HPI - URI/Sore Throat General Chief Complaint: Upper Respiratory Infection Stated Complaint: Cough Time Seen by Provider: 07/14/23 19:35 Source: patient and RN notes reviewed Mode of arrival: ambulatory Limitations: no limitations History of Present Illness HPI Narrative: Patient presents today with a 3 week history of cough, rhinorrhea, nasal congestion and mild shortness of breath. She has been taking NyQuil with mild relief. She developed a fever 2-3 days ago up to 101.2. No history of asthma or COPD. Patient vapes. She quit smoking cigarettes approximately 1.5 years ago. Related Data Allergies Allergy/AdvReac Type Severity Reaction Status Date / Time No Known Allergies Allergy Verified 12/04/21 01:55 Review of Systems Review of Systems: CONSTITUTIONAL: Denies body aches, chills, or + fever sweats. EYES: Denies visual changes, redness, or discharge. ENT: Denies sore throat, or otalgia.+ rhinorrhea, congestion CARDIOVASCULAR: Denies chest pain, palpitations, or edema. RESPIRATORY: + cough, shortness of breath GASTROINTESTINAL: Denies abdominal pain, nausea, vomiting, or diarrhea. GENITOURINARY: Denies dysuria or hematuria. SKIN: Denies rash, itching, or wounds. MUSCULOSKELETAL: Denies back pain, joint pain, or myalgia. NEUROLOGIC: Denies headache, numbness, tingling, or weakness. PSYCH: Denies depression or anxiety. [facility] Past Medical History Medical History Patient denies medical problems Surgical History Surgical History No history of previous surgery Social History Social History (Updated 07/14/23 @ 19:41 by Nicole Bahena, [facility], ) Years smoked: 10 Smoking status: Current every day smoker Tobacco type: e-cigarettes/vaping Second hand tobacco smoke exposure: Yes Substance use: never Gender identity (if verbalized by the patient): Female Spiritual care concerns: No Comments At time of signature, I have reviewed and agree with nursing past medical, surgical, social and family history unless otherwise noted. Please see nursing chart for further information. There is no relevant family history pertinent to the presenting complaint Exam Narrative: GENERAL: Mildly ill-appearing, well-nourished, and in no acute distress. HEAD: Normocephalic, atraumatic. EYES: EOMI. No redness or drainage. Conjunctivae normal. ENT: Mucous membranes pink and moist. Nares congestive. No rhinorrhea. TMs normal bilaterally. Throat normal. Uvula midline. NECK: Normal AROM. Supple. No lymphadenopathy. CHEST: No respiratory distress. Diminished in the right lower lobe wound, otherwise clear HEART: Regular rate and rhythm. No murmur appreciated. EXTREMITIES: Normal range of motion. No edema. SKIN: Warm, dry, no rash. Capillary refill normal. Normal skin turgor. NEURO: No focal deficits. Alert and oriented x3. Gait steady. PSYCH: Normal affect. No signs of depression or anxiety. Course Course Level of Care: Express Care Visit Vital Signs Vital signs: Vital Signs Temperature 97.8 F 07/14/23 18:47 Pulse Rate 96 07/14/23 18:47 Respiratory Rate 18 07/14/23 18:47 Blood Pressure 129/82 07/14/23 18:47 Pulse Oximetry 99 07/14/23 18:47 Oxygen Delivery Room Air 07/14/23 18:47 Temperature 97.8 F 07/14/23 18:47 Pulse Rate 96 07/14/23 18:47 Respiratory Rate 18 07/14/23 18:47 Blood Pressure 129/82 07/14/23 18:47 Pulse Oximetry 99 07/14/23 18:47 Oxygen Delivery Room Air 07/14/23 18:47 Reviewed MDM - URI/Sore Throat MDM Narrative Medical decision making narrative: COVID and influenza negative. Chest x-ray shows infiltrates in the right lower lobe, will treat with Augmentin and azithromycin. Anticipatory guidance given. Differential Diagnosis Differential diagnosis: Likely upper respiratory infection, viral infection, bronchiti
== END 2023-07-14 19:48 | disposition home or self-care (01) ==
PROVIDERS: Emergency Provider Nurse Practitioner; PCP Emergency Medicine
DX: J18.9 Pneumonia, unspecified organism (principal); Z20.822 Contact with and (suspected) exposure to COVID-19; F17.290 Nicotine dependence, other tobacco product, uncomplicated
CPT/HCPCS: 71046; 87426; 87804; 99213; G0463

== ENCOUNTER 2024-04-16 17:55 | Emergency (ER) | payer OTHER, SELFPAY ==
[2024-04-16 18:06] VITALS: BP 142/88; PULSE 114; RESP 20; TEMP 36; O2SAT 98
--- NOTE | 2024-04-16 18:07 | ED_ITS ---
HPI - General Adult General Chief complaint: Upper Respiratory Infection Stated complaint: Sore Throat Time Seen by Provider: 04/16/24 18:07 Source: patient, RN notes reviewed and old records reviewed Mode of arrival: ambulatory Limitations: no limitations History of Present Illness HPI narrative: 28-year-old female presents to the [facility] with complaints of a sore throat, body aches, fever, sinus congestion since Tuesday, 3 days. Has taken Tylenol Related Data Home Medications Medication Instructions Recorded Confirmed No Home Medications 04/16/24 04/16/24 Allergies Allergy/AdvReac Type Severity Reaction Status Date / Time No Known Allergies Allergy Verified 04/16/24 17:59 Review of Systems Review of Systems: All systems reviewed & are unremarkable except as noted in HPI and below Constitutional: Constitutional: Reports as per HPI, Reports body ache(s) and Reports fever(s) ENT: Reports as per HPI Cardiovascular: Cardiovascular: Reports no additional cardiovascular complaints, Denies chest pain and Denies dyspnea Respiratory: Respiratory: Reports no additional respiratory complaints, Denies chest congestion, Denies cough and Denies dyspnea Gastrointestinal: Gastrointestinal: Reports no additional gastrointestinal complaints, Denies abdominal pain, Denies nausea and Denies vomiting Musculoskeletal: Musculoskeletal: Reports no additional musculoskeletal complaints Integumentary/Breasts: Skin/Breast: Reports system reviewed and no additional complaints, except as docu PMFSH Past Medical History Medical History Patient denies medical problems Surgical History Surgical History No history of previous surgery Social History Social History Years smoked: 10 Smoking status: Current every day smoker Tobacco type: e-cigarettes/vaping Second hand tobacco smoke exposure: Yes Substance use: never Gender identity (if verbalized by the patient): Female Spiritual care concerns: No Comments At the time of my signature, I reviewed and agree with the nursing past medical, surgical, social, and family history. There is no relevant family history pertinent to the patient complaint. Exam Const: General: cooperative, healthy appearing, comfortable, no acute distress, well developed, alert and well nourished Nutritional Appearance: well nourished and obese Orientation/consciousness: patient oriented x3 Limitations: no limitations HENMT: Head: normal to inspection Ears: hearing grossly normal bilaterally, external ears normal, TM's normal bilaterally, EAC's normal, mastoids normal and no periauricular adenopathy Face/Nose/Sinus: Normal external nose present, normal facial exam and face symmetric Face and sinus: normal facial exam and face symmetric Throat: tonsils normal, uvula midline, posterior oropharynx abnormal erythema; no edema, no exudates and no foreign body, postnasal drainage and no uvular edema Eyes: General: appearance normal, both eyes and all related structures Alignment and Position: alignment normal Periorbital: periorbital findings normal Neck: Neck: normal visual inspection, full ROM, no lymphadenopathy and no meningeal signs Chest: Chest palpation & inspection: normal inspection of the chest Resp: Effort & Inspection: normal respiratory effort and able to speak in complete sentences Auscultation: clear to auscultation bilaterally, no crackles, no rales, no rhonchi and no wheezes Cardio: Rate: regular rate Skin: General skin exam: normal color and no rashes or lesions noted Lesions: no lesions Rashes: no rashes Wounds: no wounds Neuro: General: patient oriented x3, gait normal, tone normal, moves all extremities and no meningeal signs Cognition (Neuro): normal cognition Speech: normal speech Gait exam (Neuro): Normal gait present Extrem: General: normal to inspection, full ROM, capillary refill normal and normal gait Psych: Appearance: grossly normal and well kempt Mental Status: mental status grossly normal Speech and movement: Normal speech and movement present and Clear speech present Affect: normal affect Attitude: cooperative Course Course Level of Care: Express Care Visit Vital Signs Vital signs: Vital Signs Temperature 96.8 F L 04/16/24 18:06 Pulse Rate 114 H 04/16/24 18:06 Respiratory Rate 20 04/16/24 18:06 Blood Pressure 142/88 H 04/16/24 18:06 Pulse Oximetry 98 04/16/24 18:06 Oxygen Delivery Room Air 04/16/24 18:06 Temperature 96.8 F L 04/16/24 18:06 Pulse Rate 114 H 04/16/24 18:20 Respiratory Rate 20 04/16/24 18:20 Blood Pressure 142/88 H 04/16/24 18:06 Pulse Oximetry 98 04/16/24 18:20 Oxygen Delivery Room Air 04/16/24 18:06 Reviewed Medical Decision Making MDM Narrative Medical decision making narrative: Patient sitting comfortably in exam room. Nontoxic, vitals stable. Patient in no acute distress Patient presents for 3 day history of URI symptoms Flu COVID strep were negative in clinic Patient appropriate for outpatient treatment of URI Discharge instructions reviewed with patient, as well as provided in writing per nursing staff. The instructions also include specific and strict return/GO TO THE ER as well as f/u information. All questions have been answered, and the patient deny any further questions with discharge and discharge plan. Some parts of this dictation were generated by voice recognition software and may contain typographical and/or grammatical inaccuracies. Differential Diagnosis Differential Diagnosis: Flu, COVID, strep, URI, bronchitis Medical Records Medical records reviewed: Yes I reviewed the external patient's medical records. Vital Signs Vital Signs: Vital Signs Temperature 96.8 F L 04/16/24 18:06 Pulse Rate 114 H 04/16/24 18:06 Respiratory Rate 20 04/16/24 18:06 Blood Pressure 142/88 H 04/16/24 18:06 Pulse Oximetry 98 04/16/24 18:06 Oxygen Delivery Room Air 04/16/24 18:06 Temperature 96.8 F L 04/16/24 18:06 Pulse Rate 114 H 04/16/24 18:20 Respiratory Rate 20 04/16/24 18:20 Blood Pressure 142/88 H 04/16/24 18:06 Pulse Oximetry 98 04/16/24 18:20 Oxygen Delivery Room Air 04/16/24 18:06 Reviewed Lab Data Lab results reviewed: Yes I reviewed the patient's lab results. Labs: Lab Results 04/16/24 Range/Units 18:51 POC Influenza A Ag Negative (Negative) POC Influenza B Ag Negative (Negative) POC SARS CoV-2 Ag Negative (Negative) POC Grp A Strep Screen Negative (Negative) Reviewed Critical Care Time Critical Care Time Critical Care Time: No Discharge Plan Discharge Clinical Impression: Upper respiratory infection, Viral infection Patient Disposition: Home, Self-Care Condition: Stable Instructions: Antibiotic Form, Upper Respiratory Infection (ED) Additional Instructions: Your rapid strep swab was negative today at [facility]. A throat culture will be sent to the laboratory for further testing. If the test is positive, you will receive a phone call within 48 hours and an appropriate antibiotic will be initiated at that time. Your rapid COVID test were negative Your rapid flu test was negative Your symptoms are likely due to a viral illness, which is not treated with antibiotics. Typically viral infections last 7-10 days, can linger for couple of weeks. It is very important to treat your symptoms. Plenty of water, Gatorade, Pedialyte, ice pops or Jell-O. -Alternate Tylenol and Motrin per package directions for fever or pain. You can alternate every 4 hours -Antihistamine medication such as Benadryl at night and Zyrtec/Claritin/[place] during the day can help improve symptoms. -doing daily nasal irrigations can help relieve pressure your sinuses. Things like a Neti pot -Use Flonase twice a day for 5 days then daily to help reduce the inflammation and dry up your sinuses. -You can also use Mucinex. Be sure to drink plenty of water with this medication at least 8 ounces with every dose and it is important to drink 8 to 10 glasses of water per day. Water is a natural decongestant -Eat and drink things that are easy to swallow, like tea or soup, or popsicles. -Oral rinses such as: Salt water gargles and/or may use topical anesthetic (eg. Chloraseptic spray) or lozenges to relieve dryness or throat pain). -Frequent hand washing or hand 3d designer is one of the best ways to prevent spread of infection. -Using a vaporizer or humidifier at night will also help thin secretions and help with coughing up phlegm. -Follow up with primary care provider in 7-10 days if condition is not improving - For new or worsening symptoms go directly to the nearest ER Patient Language: Azeri Prescriptions: No Action No Home Medications Follow-up/Referrals: Juan Andrade MD [Primary Care Provider] - 2 Weeks ([facility] follow-up) Stand Alone Forms: Work/School Release IP Time of Disposition: 18:43
[2024-04-16 18:20] VITALS: PULSE 114; RESP 20; O2SAT 98
[2024-04-16 18:54] LABS: EDCOVIDSCREEN Negative (Negative); EDINFLUASCREEN Negative (Negative); EDINFLUBSCREEN Negative (Negative); EDSTREPNEGPOS1 Negative (Negative)
== END 2024-04-16 18:50 | disposition home or self-care (01) ==
PROVIDERS: Emergency Provider Nurse Practitioner; PCP Emergency Medicine
DX: J06.9 Acute upper respiratory infection, unspecified (principal); B34.9 Viral infection, unspecified; Z20.822 Contact with and (suspected) exposure to COVID-19; F17.290 Nicotine dependence, other tobacco product, uncomplicated
CPT/HCPCS: 87081; 87426; 87804; 87880; 99213; G0463